=== PATIENT | male | born 1945 | race Caucasian/White ===

== ENCOUNTER 2022-02-28 10:28 | Emergency (ER) | payer MEDICARE ==
[2022-02-28 10:44] VITALS: BP 128/71; PULSE 101; RESP 16; TEMP 98.1
[2022-02-28] MEDS ORDERED: ORPHENADRINE 30 MG/ML 2 ML VIAL IM STA (11:06)
--- NOTE | 2022-02-28 12:03 | XR ---
EXAM TYPE: LUMBAR SPINE X RAY SERIES COMPARISON: NONE HISTORY: Pain TECHNIQUE: 3 views are submitted. FINDINGS: Alignment is anatomic. The pedicles are intact. The transverse processes are intact. There is diff use osteopenia with hypertrophic and degenerative changes spine. Appears to be a 3.8 cm abdominal aor tic aneurysm. Multilevel facet arthropathy of the lumbar spine. IMPRESSION: 1. Multilevel moderate degenerative disc disease with severe facet arthropathy lower lumbar spine. Bhardwaj spect foraminal encroachment recommend MRI. 2. Findings are suggestive of a 3.8 cm abdominal aortic aneurysm.
--- NOTE | 2022-02-28 12:10 | ED ---
Back Pain HPI - General Chief Complaint: Back Pain/Injury Stated Complaint: Back pain Time Seen by Provider: 02/28/22 10:52 Source: patient, family, RN notes reviewed Mode of arrival: ambulatory Limitations: no limitations - History of Present Illness Initial Comments: Patient is a 76-year-old male, presenting to emergency Department with complaints of left sided sciatica. Patient states it started about a week and a half ago when he woke up in the morning. He denies any injuries or trauma. No previous back surgeries or injuries.patient denies any numbness and tingling into his extremities, no saddle paresthesia, no bowel or bladder incontinence. He states he went to his PCP about 2 days after it started, he did have a steroid Dosepak which did not improve his symptoms. Patient states he talked to his son who is an FILLETER and he wants to try a muscle relaxer. He has been taking ibuprofen which has been helping. He denies any fevers or chills. he denies chest pain or shortness of breath, no abdominal pain, no nausea or vomiting.He has no further complaints. - Related Data Home Medications Medication Instructions Recorded Confirmed Krill Oil 500 mg PO DAILY 11/11/15 10/24/18 Multivitamin [Men's Multi-Vitamin] 1 each PO DAILY 11/11/15 10/24/18 QUEtiapine FUMARATE 50 mg PO HS 11/11/15 10/24/18 Previous Rx's Medication Instructions Recorded methocarbamoL [Robaxin] 500 mg PO TID PRN #15 tab 02/28/22 Allergies Allergy/AdvReac Type Severity Reaction Status Date / Time Oxjfpbq-IJT-MpD Reductase AdvReac Unknown Verified 10/24/18 16:01 Inhibitor [Jseepii-Aqv-Hfe Reductase Inhibitor] Review of Systems ROS Statement: Those systems with pertinent positive or pertinent negative responses have been documented in the HPI. ROS Other: All systems not noted in ROS Statement are negative. Past Medical History Past Medical History: No Reported History Additional Past Medical History / Comment(s): pre diabetes 10/2018 History of Any Multi-Drug Resistant Organisms: None Reported Past Surgical History: Joint Replacement Additional Past Surgical History / Comment(s): colonoscopy Past Anesthesia/Blood Transfusion Reactions: Postoperative Nausea & Vomiting (PONV) Past Psychological History: No Psychological Hx Reported Smoking Status: Never smoker Past Alcohol Use History: Occasional Past Drug Use History: None Reported - Past Family History Father Family Medical History: Cancer General Exam - General Exam Comments Initial Comments: GENERAL: Patient is well-developed and well-nourished. Patient is nontoxic and in no acute distress. HEAD: Atraumatic, normocephalic. EYES: Pupils equal round and reactive to light, extraocular movements intact, sclera anicteric, conjunctiva are normal. Eyelids were unremarkable. LUNGS: Unlabored respirations. Breath sounds clear to auscultation bilaterally and equal. No wheezes rales or rhonchi. HEART: Regular rate and rhythm without murmurs, rubs or gallops. ABDOMEN: Soft, nontender, normoactive bowel sounds. No guarding, no rebound. No masses appreciated. MUSCULOSKELETAL: patient has mild pain with palpation and left gluteal area, positive straight leg raise test. Neurovascular intact. Normal extremities with adequate strength and normal range of motion, no pitting or edema. No clubbing or cyanosis. NEUROLOGICAL: Patient is alert and oriented x 3. Motor and sensory are also intact. Normal speech, normal gait. PSYCH: Normal mood, normal affect. SKIN: Warm, Dry, normal turgor, no rashes or lesions noted. Course Vital Signs 02/28/22 10:41 Temperature 98.1 F Pulse Rate 101 H Respiratory 16 Rate Blood Pressure 128/71 O2 Sat by Pulse 96 Oximetry Medical Decision Making - Medical Decision Making patient is a 76-year-old male here with left-sided sciatica started about 1-2 weeks ago. He tried a Medrol Dosepak from his PCP without improvement. His exam is consistent with mild left-sided sciatica. X-ray of the lumbar spine revealed multilevel degenerative disc disease. There was note made of a 3.8 cm abdominal aortic aneurysm. He was unaware of this. I will give him proper follow-up. Patient received a shot of muscle relaxer. Patient will also be sent home with a trial muscle relaxer, we discussed heat to the area, stretching and he will continue with ibuprofen as needed for discomfort. He can follow up with his PCP if symptoms persist. He is agreeable with this plan of care and he is stable for discharge. Disposition Clinical Impression: Left-sided low back pain with sciatica Disposition: HOME SELF-CARE Condition: Stable Instructions (If sedation given, give patient instructions): Sciatica (ED) Additional Instructions: Please return to the Emergency Department if symptoms worsen or any other concerns. Trial of muscle relaxer at night. Recommend heat to the area, gentle stretching as discussed. Abdominal aortic aneurysm was seen on x-ray. Recommend follow-up with vascular to monitor this. Prescriptions: methocarbamoL [Robaxin] 500 mg PO TID PRN #15 tab PRN Reason: muscle spasms Is patient prescribed a controlled substance at d/c from ED?: No Referrals: Jae Khan DO [Doctor of Osteopathic Medicine] - 1-2 days Ivon Rosales DO [STAFF PHYSICIAN] - 1-2 days Time of Disposition: 12:16
== END 2022-02-28 12:41 | disposition home or self-care (01) ==
LOC: EC 10:28
DX: M54.42 Lumbago with sciatica, left side (principal); Z88.8 Allergy status to other drugs, medicaments and biological substances
CPT/HCPCS: 72100; 99283; 96372; J2360

== ENCOUNTER 2022-05-11 09:14 | Day surgery (SDC) | payer MEDICARE, OTHER ==
[~2022-05-11 09:14] MED LIST: LACTATED RINGERS 1,000 ML IV SCH; LIDOCAINE 1% (10MG/ML) FOR IV START INTRADERMA PRN
[2022-05-11] MEDS ORDERED: LACTATED RINGERS 1,000 ML IV ONE (09:33)
[2022-05-11 09:46] VITALS: TEMP 97.9
[2022-05-11] MEDS ORDERED: PROPOFOL 10 MG/ML 20 ML VIAL IV ONE (10:27)
--- NOTE | 2022-05-11 10:51 | P.PCN ---
Date of Procedure: 05/11/22 Procedure(s) Performed: BRIEF HISTORY: Patient is a 76-year-old pleasant a scheduled for an elective colonoscopy as a part of surveillance of prior history of colon polyps. Last colonoscopy was 5 years ago. PROCEDURE PERFORMED: Colonoscopy snare polypectomy . PREOPERATIVE DIAGNOSIS: History Of colon polyps. IV sedation per Anesthesia. PROCEDURE: After informed consent was obtained, the patient, was brought into the endoscopy unit. IV sedation was administered by Anesthesia under continuous monitoring. Digital rectal examination was normal. Initially the Olympus CF-160 flexible video colonoscope was then inserted in the rectum, and could not be advanced into the sigmoid colon. Scope was removed and a. Colonoscopy was then inserted into the rectum and gradually advanced to the sigmoid colon and most not possible. Scope was removed and a pediatric colonoscopy was then introduced into the rectum and gradually advanced into the cecum with moderate to severe difficulty. Careful examination was performed as the scope was gradually being withdrawn. Ileocecal valve and the appendiceal orifice were visualized and appeared normal. Prep was excellent. Mucosa of the cecum, we normal. In the ascending colon there was a 7 mm polyp removed by snare polyp rectum he. Rest of the ascending colon, transverse colon, descending colon, sigmoid colon, and rectum appeared normal. moderate sigmoid diverticulosis. Retroflexion was performed in the rectum and no lesions were seen. The patient tolerated the procedure well. IMPRESSION: 7 mm ascending colon polyp status post polypectomy Scattered sigmoid diverticulosis Recommendations Findings of this examination were discussed with the patient well as his family.. He was advised to follow with the biopsy results. If the biopsy reveals an adenoma he can have a repeat colonoscopy in 5 years.
[2022-05-11 11:18] VITALS: BP 138/90; PULSE 80; RESP 15
== END 2022-05-11 11:45 | disposition home or self-care (01) ==
LOC: ORWHC2ENDO 09:14
PROVIDERS: ATTEND Internal Medicine Gastroenterology
DX: D12.2 Benign neoplasm of ascending colon (principal); Z86.010 Personal history of colon polyps; K57.30 Diverticulosis of large intestine without perforation or abscess without bleeding; I10 Essential (primary) hypertension; K21.9 Gastro-esophageal reflux disease without esophagitis; Z79.899 Other long term (current) drug therapy; Z88.8 Allergy status to other drugs, medicaments and biological substances; Z96.641 Presence of right artificial hip joint; Z87.891 Personal history of nicotine dependence
CPT/HCPCS: 88305; 45385; J2704

== ENCOUNTER → 2022-05-31 | Outpatient (CLI) | payer OTHER ==
[2022-05-31 08:59] LABS: African American GFR (CKD) >90 (>60 ml/min/1.73 sqM); Blood Urea Nitrogen 17 mg/dL (9-20); Non-African American GFR(CKD) 83 (>60 ml/min/1.73 sqM)
--- NOTE | 2022-05-31 09:54 | CT ---
EXAMINATION TYPE: CT abdomen w con CT DLP: 932.5 mGycm, Automated exposure control for dose reduction was used. DATE OF EXAM: 05/31/2022 9:44 AM COMPARISON: None CLINICAL INDICATION:Male, 76 years old with history of I71.4 AAA; AAA TECHNIQUE: Standard CT of the abdomenfollowing the administration of 100 cc of Isovue [address] material. Coronal and sagittal reformats were performed. FINDINGS: LOWER CHEST: Streaky dependent and subsegmental atelectasis/scarring ABDOMEN LIVER: Subcentimeter too small to characterize hypodensities. GALLBLADDER AND BILE DUCTS: Unremarkable. PANCREAS: Unremarkable. SPLEEN: Small splenule is present. ADRENAL GLANDS: Unremarkable. KIDNEYS AND URETERS: No evidence of hydronephrosis. Nonobstructing left renal calculus measuring 5 mm . STOMACH AND BOWEL: No evidence of bowel obstruction. Scattered clonic diverticula present. PERITONEUM: No evidence of pneumoperitoneum or free fluid. VASCULATURE: Scattered atherosclerosis of the arterial vasculature. There is infrarenal aortic fusifo rm aneurysmal dilation measuring up to 3.2 cm. There is fusiform dilation of the common iliac arterie s measuring up to 2.0 cm on the left and 1.4 cm on the right. MUSCULOSKELETAL: No acute osseous abnormalities LYMPH NODES: No gross evidence for lymphadenopathy. SOFT TISSUE/ABDOMINAL WALL: Unremarkable IMPRESSION: 1. Infrarenal fusiform aortic aneurysm dilation measuring up to 3.2 cm. 2. 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 3. Clonic diverticulosis. 4. Scattered hepatic hypodensities throughout to small to characterize but statistically likely to re present cysts.
== END | disposition home or self-care (01) ==
LOC: RADCTMAIN 08:25
DX: I71.4 Abdominal aortic aneurysm, without rupture (principal)
CPT/HCPCS: 82565; 84520; 74160; 36415; Q9967 ×2

== ENCOUNTER → 2023-03-16 | Outpatient (CLI) | payer OTHER ==
--- NOTE | 2023-03-17 09:47 | MR ---
EXAMINATION TYPE: MR brain wo/w con DATE OF EXAM: 03/16/2023 COMPARISON: NONE HISTORY: 77-year-old male R51.9, Frequent headaches. Technique: Multiplanar, multisequence images of the brain and brainstem were obtained before and afte r administration of 9 mL intravenous Gadavist gadolinium contrast. Diffusion weighted imaging is per formed. FINDINGS: No evidence for acute infarction, hemorrhage, mass, mass effect, midline shift, herniation, effacemen t of basal cisterns, or extra-axial fluid collection. There is mild age-related cortical volume loss. No hydrocephalus. Major intracranial flow voids are intact. T2-weighted FLAIR images and T2-weighted images show moderate scattered and patchy periventricular, s ubcortical, an deep white matter bright signal foci in both cerebral hemispheres. Midline structures demonstrate normal morphology. The craniocervical junction is normal. Post contrast images demonstrate no evidence of pathologic enhancement. Dural venous sinuses are pat ent. Moderate mucosal thickening throughout the ethmoid air cells. Rightward nasal septal deviation. Globe s are intact. IMPRESSION: 1. Mild age-related cerebral cortical volume loss. No acute intracranial abnormality or enhancing int racranial lesions. 2. Moderate burden of T2 bright white matter change is nonspecific. Usually relates to chronic small vessel ischemic disease changes. Given patient's headaches, chronic migraines are also in the differe ntial. 3. Moderate chronic ethmoid sinus disease.
== END | disposition home or self-care (01) ==
LOC: RADMRIMAIN 10:29
PROVIDERS: ATTEND Nurse Practitioner Acute Care
DX: I67.82 Cerebral ischemia (principal); J32.2 Chronic ethmoidal sinusitis; G93.89 Other specified disorders of brain
CPT/HCPCS: 70553; A9585

== ENCOUNTER 2025-06-08 14:56 | Emergency (ER) | payer OTHER ==
--- NOTE | 2025-06-08 15:38 | ED ---
General Adult HPI - General Chief complaint: Nausea/Vomiting/Diarrhea Stated complaint: Possible food poisoning Time Seen by Provider: 06/08/25 15:09 Source: patient, family Mode of arrival: wheelchair Limitations: no limitations - History of Present Illness Initial comments: Dictation was produced using Story[employer] dictation software. please excuse any grammatical, word or spelling errors. Chief Complaint: 79-year-old male presents with diarrhea History of Present Illness: Patient 79-year-old male presents with diarrhea. States that his diarrhea is watery. Has had approximately 6 episodes of diarrhea in the last 24 hours. No recent travel. Diarrhea is attributed to eating a salami sandwich yesterday. Has not had any camping. Denies any possi ble ingestion of stool or stool contaminated products. No fever. Denies any left lower quadrant abdominal pain The ROS documented in this emergency department record has been reviewed and confirmed by me. Those systems with pertinent positive or negative responses have been documented in the HPI. All other systems are other negative and/or noncontributory. - Related Data Home Medications Medication Instructions Recorded Confirmed Krill Oil 500 mg PO DAILY 11/11/15 05/09/22 Multivitamin [Men's Multi-Vitamin] 1 each PO DAILY 11/11/15 05/09/22 QUEtiapine FUMARATE 50 mg PO HS PRN 11/11/15 05/09/22 Cholecalciferol [Vitamin D3 (25 25 mg PO DAILY 05/09/22 05/09/22 Mcg = 1000 Iu)] Famotidine [Pepcid] 10 mg PO QAM 05/09/22 05/09/22 Ubidecarenone [Co Q-10] 1 tab PO DAILY 05/09/22 05/09/22 lisinopriL [Zestril] 20 mg PO QAM 05/09/22 05/09/22 Allergies Allergy/AdvReac Type Severity Reaction Status Date / Time Sadgksr-QYF-MdL Reductase AdvReac MUSCLE Verified 06/08/25 14:59 Inhibitor PAIN IN [Gvbxvie-Jns-Qai Reductase LEGS Inhibitor] Review of Systems ROS Statement: Those systems with pertinent positive or pertinent negative responses have been documented in the HPI. ROS Other: All systems not noted in ROS Statement are negative. Past Medical History Past Medical History: GERD/Reflux, Hypertension Additional Past Medical History / Comment(s): pre diabetes 10/2018 History of Any Multi-Drug Resistant Organisms: None Reported Past Surgical History: Joint Replacement Additional Past Surgical History / Comment(s): colonoscopy. RIGHT HIP REPLACED Past Anesthesia/Blood Transfusion Reactions: Postoperative Nausea & Vomiting (PONV) Past Psychological History: No Psychological Hx Reported Smoking Status: Former smoker Past Alcohol Use History: None Reported Past Drug Use History: None Reported - Past Family History Father Family Medical History: Cancer General Exam - General Exam Comments Initial Comments: PHYSICAL EXAM: General Impression: Alert and oriented x3, not in acute distress HEENT: Normocephalic atraumatic, extra-ocular movements intact, pupils equal and reactive to light bilaterally, mucous membranes moist. Cardiovascular: Heart regular rate and rhythm Chest: Able to complete full sentences, no retractions, no tachypnea Abdomen: abdomen soft, non-tender, non-distended, no organomegaly Musculoskeletal: Pulses present and equal in all extremities, no peripheral edema Motor: no focal deficits noted Neurological: CN II-XII grossly intact, no focal motor or sensory deficits noted Skin: Intact with no visualized rashes Psych: Normal affect and mood Limitations: no limitations Course Vital Signs 06/08/25 15:00 Temperature 98.2 F Pulse Rate 97 Respiratory 18 Rate Blood Pressure 142/85 O2 Sat by Pulse 96 Oximetry Medical Decision Making - Medical Decision Making Was pt. sent in by a medical professional or institution ([facility], [employer], urgent care, hospital, or [facility]...) When possible be specific @ -No Did you speak to anyone other than the patient for history (EMS, parent, family, police, friend...)? What history was obtained from this source @ -No Did you review nursing and triage notes (agree or disagree)? Why? @ -I reviewed and agree with nursing and triage notes Were old charts reviewed (outside hosp., previous admission, EMS record, old EKG, old radiological studies, urgent care reports/EKG's, [facility] records)? Report findings @ -No old charts were reviewed Differential Diagnosis (chest pain, altered mental status, abdominal pain women, abdominal pain men, vaginal bleeding, musculoskeletal, weakness, fever, dyspnea, syncope, headache, dizziness, GI bleed, back pain, seizure, CVA, palpatations, mental health)? @ -Gastroenteritis, bacterial enteritis, food poisoning EKG interpreted by me (3pts min.). @ -None done X-rays interpreted by me (1pt min.). @ -None done CT interpreted by me (1pt min.). @ -None done U/S interpreted by me (1pt. min.). @ -None done What testing was considered but not performed or refused? (CT, X-rays, U/S, labs)? Why? @ -None What meds were considered but not given or refused? Why? @ -None Was smoking cessation discussed for >3mins.? @ -No Were there social determinants of health that impacted care today? How? (Homelessness, low income, unemployed, alcoholism, drug addiction, transportation, low edu. Level, literacy, decrease access to med. care, penitentiary, rehab)? @ -No Was there de-escalation of care discussed even if they declined (Discuss DNR or withdrawal of care, Hospice)? DNR status @ -No What co-morbidities impacted this encounter? (DM, HTN, Smoking, COPD, CAD, Cancer, CVA, ARF, Chemo, Hep., AIDS, mental health diagnosis, sleep apnea, morbid obesity)? @ -None Was patient admitted / discharged? Hospital course, mention meds given and route, prescriptions, significant lab abnormalities, going to OR and other pertinent info. @ -79-year-old male with diarrhea. Vital signs stable has no high risk features. Abdomen is benign. Labs are unremarkable. Patient not a candidate for antibiotics due to no significant risk factors and not protracted symptoms. Advised follow-up with primary care doctor. Told to follow-up or seek medical attention with any worsening symptoms. Did you discuss the management of the patient with other professionals (professionals i.e. , PA, TRUCK DRIVING INSTRUCTOR, lab, RT, psych nurse, social media manager, spooling operator, teacher, chief media officer, disease case manager)? Give summary @ -No Was critical care preformed (if so, how long)? @ -No Undiagnosed new problem with uncertain prognosis? @ -No Drug Therapy requiring intensive monitoring for toxicity (Heparin, Nitro, Insulin, Cardizem)? @ -No Were any procedures done? @ -No Diagnosis/symptom? Acute, or Chronic, or Acute on Chronic? Uncomplicated (without systemic symptoms) or Complicated (systemic symptoms)? @ -Enteritis, no high risk features Side effects of treatment? @ -No Exacerbation, Progression, or Severe Exacerbation? @ -No Poses a threat to life or bodily function? How? (Chest pain, USA, SC, pneumonia, PE, COPD, DKA, ARF, appy, cholecystitis, CVA, Diverticulitis, Homicidal, Suicidal, threat to staff... and all critical care pts) @ -No - Lab Data Result diagrams: 06/08/25 15:48 06/08/25 15:48 Lab Results 06/08/25 06/08/25 Range/Units 15:48 15:48 WBC 7.43 (4.50-10.00) 10*3/uL RBC 5.32 (4.40-5.60) 10*6/uL Hgb 16.2 (13.0-17.0) g/dL Hct 46.1 (39.6-50.0) % MCV 86.7 (80.0-97.0) fL MCH 30.5 (27.0-32.0) pg MCHC 35.1 (32.0-37.0) g/dL Plt Count 166 (140-440) 10*3/uL MPV 9.2 L (9.5-12.2) fL Immature Gran % (Auto) 0.3 % Neutrophils % 79.0 % Lymphocytes % 11.6 % Monocytes % 8.1 % Eosinophils % 0.7 % Basophils % 0.3 % Immature Gran # 0.02 (0.00-0.04) 10*3/uL Neutrophils # 5.88 (1.80-7.70) 10*3/uL Lymphocytes # 0.86 L (0.90-5.00) 10*3/uL Monocytes # 0.60 (0.20-1.00) 10*3/uL Eosinophils # 0.05 (0.04-0.35) 10*3/uL Basophils # 0.02 (0.00-0.10) 10*3/uL Sodium 136 L (137-145) mmol/L Potassium 3.9 (3.5-5.1) mmol/L Chloride 102 (98-107) mmol/L Carbon Dioxide 21 L (22-30) mmol/L Anion Gap 13 mmol/L BUN 17 (9-20) mg/dL Creatinine 0.71 (0.66-1.25) mg/dL Est GFR (CKD-EPI)AfAm >90 (>60 ml/min/1.73 sqM) Est GFR (CKD-EPI)NonAf >90 (>60 ml/min/1.73 sqM) Glucose 110 H (74-99) mg/dL Calcium 8.9 (8.4-10.2) mg/dL Disposition Clinical Impression: Gastroenteritis Disposition: HOME SELF-CARE Condition: Fair Instructions (If sedation given, give patient instructions): Acute Diarrhea (ED) Is patient prescribed a controlled substance at d/c from ED?: No Referrals: Jae Khan DO [Primary Care Provider] - 1-2 days Time of Disposition: 16:49
[2025-06-08 15:51] LABS: Basophils # (A) 0.02 10*3/uL (0.00-0.10); Basophils % (A) 0.3 %; Eosinophils # (A) 0.05 10*3/uL (0.04-0.35); Eosinophils % (A) 0.7 %; HCT 46.1 % (39.6-50.0); HGB 16.2 g/dL (13.0-17.0); Lymphocytes # (A) 0.86 10*3/uL (0.90-5.00); Lymphocytes % (A) 11.6 %; MCH 30.5 pg (27.0-32.0); MCHC 35.1 g/dL (32.0-37.0); MCV 86.7 fL (80.0-97.0); Monocytes # (A) 0.60 10*3/uL (0.20-1.00); Monocytes % (A) 8.1 %; Neutrophils # (A) 5.88 10*3/uL (1.80-7.70); Neutrophils % (A) 79.0 %; Platelet Count 166 10*3/uL (140-440); RBC 5.32 10*6/uL (4.40-5.60); RDW 13.7 % (11.5-14.5); WBC 7.43 10*3/uL (4.50-10.00)
[2025-06-08 16:05] LABS: African American GFR (CKD) >90 (>60 ml/min/1.73 sqM); Anion Gap 13 mmol/L; Blood Urea Nitrogen 17 mg/dL (9-20); Calcium 8.9 mg/dL (8.4-10.2); Carbon Dioxide 21 mmol/L (22-30); Chloride 102 mmol/L (98-107); Glucose 110 mg/dL (74-99); Non-African American GFR(CKD) >90 (>60 ml/min/1.73 sqM); Sodium 136 mmol/L (137-145)
[2025-06-08 16:07] LABS: Potassium 3.9 mmol/L (3.5-5.1)
[2025-06-08] MEDS: SODIUM CHLORIDE 0.9% 1,000 ML IV STA (16:10)
[2025-06-08 17:12] VITALS: BP 116/79; PULSE 84; RESP 17
[2025-06-08 17:13] VITALS: TEMP 98.8
== END 2025-06-08 17:16 | disposition home or self-care (01) ==
LOC: EC 14:56
DX: K52.9 Noninfective gastroenteritis and colitis, unspecified (principal); Z87.891 Personal history of nicotine dependence; Z88.8 Allergy status to other drugs, medicaments and biological substances
CPT/HCPCS: 36415; 80048; 85025; 96360; 99284